=== PATIENT | female | born 1995 | race Caucasian/White ===

== ENCOUNTER → 2024-01-25 | Outpatient (CLI) | payer OTHER ==
[2024-01-25 09:33] LABS: BASO # 0.01 K/mm3 (0.02-0.10); EOS # 0.04 K/mm3 (0.04-0.40); EOS % 0.7 % (1.0-5.0); HEMATOCRIT 39.1 % (37.0-47.0); HEMOGLOBIN 13.3 g/dL (12.5-16.0); LYMPH# 3.02 K/mm3 (1.50-4.00); MEAN CELL VOLUME 89 fl (78-100); MEAN CORPUSCULAR HEMOGLOBIN 30 pg (27-31); MEAN CORPUSCULAR HGB CONC 34 g/dL (33-37); MEAN PLATELET VOLUME 8.5 fl (7.4-10.4); MONO # 0.34 K/mm3 (0.20-0.80); NEU # 1.95 K/mm3 (1.40-6.50); PLATELET COUNT 162 K/mm3 (130-400); RED BLOOD COUNT 4.38 M/mm3 (4.10-5.30); RED CELL DISTRIBUTION WIDTH 12.9 % (11.5-14.5); WHITE BLOOD COUNT 5.4 K/mm3 (4.8-10.8)
[2024-01-25 09:48] LABS: ALBUMIN 4.5 g/dL (3.5-5.0)
[2024-01-25 09:49] LABS: CALCIUM 10.2 mg/dL (8.3-10.5)
[2024-01-25 09:51] LABS: TOTAL PROTEIN 7.6 g/dL (6.4-8.3)
[2024-01-25 09:53] LABS: TOTAL BILIRUBIN 0.6 mg/dL (0.2-1.2)
[2024-01-26 23:27] LABS: T3 FREE 2.3 pg/mL (1.7-3.7)
[2024-01-26 23:30] LABS: HEPATITIS C ANTIBODY Negative (Nonreactiv)
== END ==
LOC: LAB 09:11
PROVIDERS: Family Medicine
DX: E78.5 Hyperlipidemia, unspecified (principal); I10 Essential (primary) hypertension